=== PATIENT | male | born 1985 | race Caucasian/White ===

== ENCOUNTER 2018-05-03 19:53 | Emergency (ER) | payer OTHER ==
[~2018-05-03] VITALS: Ht 167.6 cm; Wt 126.5 kg
[2018-05-03 19:57] VITALS: Ht 167.6 cm; Wt 126.5 kg
[2018-05-03 21:27] VITALS: BP 122/76
== END 2018-05-03 21:27 | disposition home or self-care (01) ==
LOC: ED 19:53
PROC: 0HBRXZZ Excision of Toe Nail, External Approach (ICD-10-PCS; principal; 2018-05-03)
DX: L60.0 Ingrowing nail (principal); E78.00 Pure hypercholesterolemia, unspecified; Z85.47 Personal history of malignant neoplasm of testis
CPT/HCPCS: J2001

== ENCOUNTER 2018-08-08 11:53 | Emergency (ER) | payer OTHER ==
[~2018-08-08] VITALS: Ht 167.6 cm; Wt 106.6 kg
[2018-08-08 12:07] VITALS: Ht 167.6 cm; Wt 106.6 kg
[2018-08-08 13:38] VITALS: BP 140/95
== END 2018-08-08 13:38 | disposition home or self-care (01) ==
LOC: ED 11:53
DX: R51 Headache (principal); R05 Cough; I10 Essential (primary) hypertension; E78.00 Pure hypercholesterolemia, unspecified
CPT/HCPCS: J1885

== ENCOUNTER 2019-02-11 13:34 | Emergency (ER) | payer OTHER ==
[~2019-02-11] VITALS: Ht 167.6 cm; Wt 106.6 kg
[2019-02-11 13:39] VITALS: Ht 167.6 cm; Wt 106.6 kg
[2019-02-11 15:21] LABS: microscopic required? NO
[2019-02-11 15:28] LABS: UA SPECIFIC GRAVITY 1.015 (1.005-1.035); urine erythrocyte NEGATIVE (NEGATIVE)
[2019-02-11 15:29] LABS: BASOPHIL % 0.5 % (0-2); PLATELET COUNT 267 x10^3mcL (130-400); RED CELL DISTRIBUTION WIDTH 13.7 % (11.5-14.5)
[2019-02-11 15:48] LABS: ALBUMIN 4.6 g/dL (3.4-5.0); ALKALINE PHOSPHATASE 122 U/L (46-116); ALT/SGPT 85 U/L (16-63); AST/SGOT 39 U/L (15-37); BILIRUBIN TOTAL 1.09 mg/dL (0.20-1.00); CALCIUM 9.5 mg/dL (8.5-10.1); CARBON DIOXIDE 24.7 mmol/L (21-32); CHLORIDE SERUM 99 mmol/L (98-107); CREATININE SERUM 0.8 mg/dL (0.7-1.3); GFR1 > 60 mL/min; HDL CHOLESTEROL 49 mg/dL (40-60); POTASSIUM SERUM 4.1 mmol/L (3.5-5.1); SODIUM SERUM 135 mmol/L (136-145)
[2019-02-11 16:01] LABS: GLUCOSE SERUM 94 mg/dL (74-106)
[2019-02-11 16:02] LABS: CHOLESTEROL 117 mg/dL (<200); TOTAL PROTEIN, SERUM 8.5 g/dL (6.4-8.2)
[2019-02-11 17:33] VITALS: BP 110/65
== END 2019-02-11 17:33 | disposition home or self-care (01) ==
LOC: ED 13:34
PROVIDERS: Emergency Medicine
DX: R42 Dizziness and giddiness (principal); R11.0 Nausea; I10 Essential (primary) hypertension; E78.00 Pure hypercholesterolemia, unspecified; I45.10 Unspecified right bundle-branch block; E66.9 Obesity, unspecified; Z68.37 Body mass index [BMI] 37.0-37.9, adult; Z98.890 Other specified postprocedural states; Z85.47 Personal history of malignant neoplasm of testis
CPT/HCPCS: 82962; J7030; J8597

== ENCOUNTER 2019-03-17 08:51 | Emergency (ER) | payer OTHER ==
[~2019-03-17] VITALS: Ht 167.6 cm; Wt 107.0 kg
[2019-03-17 08:55] VITALS: Ht 167.6 cm; Wt 107.0 kg
[2019-03-17 10:35] LABS: microscopic required? NO
[2019-03-17 10:59] LABS: UA SPECIFIC GRAVITY 1.015 (1.005-1.035); urine erythrocyte NEGATIVE (NEGATIVE)
[2019-03-17 12:11] VITALS: BP 127/7
== END 2019-03-17 12:11 | disposition home or self-care (01) ==
LOC: ED 08:51
PROVIDERS: Emergency Medicine
DX: N50.811 Right testicular pain (principal); I10 Essential (primary) hypertension; E78.00 Pure hypercholesterolemia, unspecified; Z98.890 Other specified postprocedural states